=== PATIENT | male | born 1975 | race African-American/Black ===

== ENCOUNTER → 2021-04-26 | Day surgery (SDC) | payer BC ==
[2021-04-26 12:40] VITALS: BP 140/99
== END | disposition home or self-care (01) ==
LOC: OR 08:44
PROVIDERS: ATTEND Internal Medicine Gastroenterology
DX: Z12.11 Encounter for screening for malignant neoplasm of colon (principal); D12.2 Benign neoplasm of ascending colon; D12.4 Benign neoplasm of descending colon; Z80.0 Family history of malignant neoplasm of digestive organs; Z68.31 Body mass index [BMI] 31.0-31.9, adult; R03.0 Elevated blood-pressure reading, without diagnosis of hypertension; Z01.810 Encounter for preprocedural cardiovascular examination; Z01.812 Encounter for preprocedural laboratory examination; Z72.89 Other problems related to lifestyle; Z72.0 Tobacco use; K64.8 Other hemorrhoids
CPT/HCPCS: 45384; 93005; U0002; 45380